=== PATIENT | male | born 1975 ===

== ENCOUNTER → 2024-12-15 | Outpatient (CLI) | payer MEDICAID, SELFPAY | END | disposition home or self-care (01) | PROVIDERS: PCP Family Medicine; Referring Provider Family Medicine; Visit Provider Student in an Organized Health Care Education/Training Program | DX: T81.89XA Other complications of procedures, not elsewhere classified, initial encounter (principal); S31.109A Unspecified open wound of abdominal wall, unspecified quadrant without penetration into peritoneal cavity, initial encounter; X58.XXXA Exposure to other specified factors, initial encounter; R00.1 Bradycardia, unspecified; E11.69 Type 2 diabetes mellitus with other specified complication; R60.0 Localized edema; Z79.4 Long term (current) use of insulin; Z79.84 Long term (current) use of oral hypoglycemic drugs; I49.9 Cardiac arrhythmia, unspecified; Z87.891 Personal history of nicotine dependence | CPT/HCPCS: 11042; 99213; A9270; G0463 ==

== ENCOUNTER → 2024-12-29 | Outpatient (CLI) | payer MEDICAID, SELFPAY | END | disposition home or self-care (01) | LOC: SWHD 15:05 | PROVIDERS: PCP Family Medicine; Referring Provider Family Medicine; Visit Provider Student in an Organized Health Care Education/Training Program | DX: T81.89XA Other complications of procedures, not elsewhere classified, initial encounter (principal); S31.109A Unspecified open wound of abdominal wall, unspecified quadrant without penetration into peritoneal cavity, initial encounter; X58.XXXA Exposure to other specified factors, initial encounter; R00.1 Bradycardia, unspecified; E11.69 Type 2 diabetes mellitus with other specified complication | CPT/HCPCS: 99213; A9270; G0463 ==

== ENCOUNTER → 2025-01-05 | Outpatient (CLI) | payer MEDICAID, SELFPAY | END | disposition home or self-care (01) | LOC: SWHD 15:04 | PROVIDERS: PCP Family Medicine; Referring Provider Family Medicine; Visit Provider Student in an Organized Health Care Education/Training Program | DX: T81.89XA Other complications of procedures, not elsewhere classified, initial encounter (principal); S31.109A Unspecified open wound of abdominal wall, unspecified quadrant without penetration into peritoneal cavity, initial encounter; X58.XXXA Exposure to other specified factors, initial encounter; R00.1 Bradycardia, unspecified; E11.69 Type 2 diabetes mellitus with other specified complication | CPT/HCPCS: 10060; A9270 ==

== ENCOUNTER → 2025-01-07 | Outpatient (CLI) | payer MEDICAID, SELFPAY | END | disposition home or self-care (01) | PROVIDERS: PCP Family Medicine; Referring Provider Family Medicine; Visit Provider Student in an Organized Health Care Education/Training Program | DX: T81.89XA Other complications of procedures, not elsewhere classified, initial encounter (principal); S31.109A Unspecified open wound of abdominal wall, unspecified quadrant without penetration into peritoneal cavity, initial encounter; X58.XXXA Exposure to other specified factors, initial encounter; R00.1 Bradycardia, unspecified; E11.69 Type 2 diabetes mellitus with other specified complication | CPT/HCPCS: 99213; A9270; G0463 ==

== ENCOUNTER 2025-01-14 20:58 | Emergency (ER) | payer MEDICAID, SELFPAY ==
[2025-01-14 21:00] VITALS: BMI 22.6
[2025-01-14 21:17] VITALS: BP 107/66; PULSE 54; RESP 17; TEMP 36.4; O2SAT 98
--- NOTE | 2025-01-14 21:23 | XR_ITS ---
Examination: CT abdomen with intravenous contrast CT pelvis with intravenous contrast 2-D coronal reconstructions 2-D sagittal reconstructions Date and time of exam:January 14, 2025 11:10 PM Indications:: Abdominal pain today CTDI: vol (mGy) 11.45 DLP: (mGycm) 517 Technique: Multiple axial sections of the abdomen and pelvis have been obtained. 64 slice high-resolution scanner used. 3 mm axial sections have been obtained, post intravenous injection 30 cc Isovue-300 2-D sagittal, coronal reconstructions obtained. Low dose protocols were performed. One or more of the following dose reduction techniques were used; automated exposure control, adjustment of the mA and/or KV according to patient size, use of iterative reconstruction technique. Findings: Significant left base pneumonia 5 mm pulmonary nodule right lower lobe No focal liver or splenic lesions Distended gallbladder with gallbladder wall thickening No pancreatic mass No renal or ureteral calculi Aorta normal size Right ileostomy A fluid distended small bowel loop in the right lower abdomen axial image 144 Urinary bladder intact Transverse prostate dimension 4.4 cm Fat-containing inguinal hernias Advanced disc narrowing L5-S1 Impression: Recommend hepatobiliary sonography to confirm acute cholecystitis Significant left base pneumonia Fluid distended small bowel loop in the right lower abdomen, suggest 3 way abdominal series follow-up if early small bowel obstruction is a clinical consideration
--- NOTE | 2025-01-14 21:24 | EDRME_ITS ---
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 Patient states no more stool is coming out of colostomy bag. Chief Complaint: Abdominal Pain Vital signs: Vital Signs Temperature 97.5 F 01/14/25 21:17 Pulse Rate 54 L 01/14/25 21:17 Respiratory Rate 17 01/14/25 21:17 Blood Pressure 107/66 01/14/25 21:17 Pulse Oximetry (%) 98 01/14/25 21:17 Oxygen Delivery Method Room Air 01/14/25 21:17
--- NOTE | 2025-01-14 21:38 | PD.EDABDPN ---
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 Patient states no more stool is coming out of colostomy bag. --------- Dr. 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 No radiation or migration. Patient reports associated N/V. Denies any other associated symptoms. Related Data Previous Rx's ?Medication ?Instructions ?Recorded hydrocodone 5 mg-acetaminophen 325 1 tab PO BID PRN pain #14 tabs 01/07/25 mg tablet Allergies Allergy/AdvReac Type Severity Reaction Status Date / Time ibuprofen Allergy Verified 01/14/25 21:05 Review of Systems Review of Systems Systems Reviewed: All systems reviewed, normal except as documented Past Medical History Past Medical History CARDIAC: Negative Cardiac Disorders or Congestive Heart Failure RESPIRATORY: Negative Chronic Obstructive Pulmonary Disease (COPD) or Asthma GENITOURINARY: Negative Renal Disease ENDOCRINE: Negative Diabetes Mellitus Type 1 or Diabetes Mellitus Type 2 HEMATOLOGIC: Negative Sickle Cell Disease Social History SMOKING STATUS: Never smoker ED Exam Narrative Physical exam: Generally patient is alert chronically ill-appearing in mild distress secondary to pain heart regular rate and rhythm, lungs clear to auscultation equal bilaterally, abdomen shows a right sided ileostomy with a chronic open wound to the left lower quadrant of the abdomen. Abdomen is slightly distended and tympanic and tender., Extremities show no edema., Neurologic exam shows Laurita Coma Scale of 15 Course Quality Measures none Orders Category Date Time Status CT Screening NOW Care 01/14/25 21:23 Active Insert IV NOW Care 01/14/25 21:[address] abdomen pelvis w con Stat Exams 01/14/25 21:23 Completed US gall bladder Stat Exams 01/15/25 00:21 Taken Amylase Stat Lab 01/14/25 21:45 Completed CBC Stat Lab 01/14/25 21:45 Completed CMP [Comprehensive Metabolic Panel] Stat Lab 01/14/25 21:45 Completed Drug Screen,Urine Stat Lab 01/15/25 00:09 Completed Lactate (Lactic Acid) Stat Lab 01/14/25 21:45 Completed Procalcitonin Stat Lab 01/14/25 21:45 Completed Urinalysis, C/S if Indicated Stat Lab 01/15/25 00:09 Completed Azithromycin Inj [Zithromax Inj] 500 mg Med 01/15/25 00:21 Discontinued Sodium Chloride 0.9% 250 ml [Ns] 250 ml IV X1 Morphine* Inj Med 01/14/25 21:48 Discontinued 4 mg IVP X1 ONE Ondansetron Inj [Zofran Inj] Med 01/14/25 21:23 Discontinued 4 mg IV X1 ONE Sodium Chloride 0.9% 1000 ml [Ns] 1,000 ml Med 01/14/25 22:47 Discontinued IV 999 mls/hr cefTRIAXone/D5w 1gm IV premix [Rocephin/D5w 1gm IV Med 01/15/25 00:21 Discontinued premix] 1 gm in 50 ml IV X1 Vital Signs Vital signs: Vital Signs Temperature 97.5 F 01/14/25 21:17 Pulse Rate 54 L 01/14/25 21:17 Respiratory Rate 17 01/14/25 21:17 Blood Pressure 107/66 01/14/25 21:17 Pulse Oximetry (%) 98 01/14/25 21:17 Oxygen Delivery Method Room Air 01/14/25 21:17 Abdominal Pain MDM MDM Narrative MDM Narrative:: Scribe Attestation: 01/14/25 - Radha Valladares am scribing for and in the presence of Dr. Connelly. I interpreted all labs. LFTs are normal. There is no leukocytosis. CT scan done of the abdomen and pelvis with IV contrast showed no obstruction. Showed the possibility of a dilated gallbladder. Ultrasound of the gallbladder showed a normal common bile duct with poor visualization of the gallbladder. LFTs are normal. No fever or leukocytosis. Patient has not had a cough or fever. Patient received morphine 4 mg IV with benefit. Patient be discharged in stable condition. Follow-up with his doctor. Return to ER as needed or if condition worsens. 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 How is presenting disease/condition affected by chronic disease/condition?: uneffected by Evaluation data The following diagnostics were reviewed and interpreted by me:: lab results and radiology exam(s) Lab and/or radiology exams considered but not ordered:: none Interpretation Summary: [place] [facility] Report Signed Patient: CARMITA HUSTON Record#: [id number] Birthdate: 1975 Age/Sex: 49 / M Location: [facility] Attending Dr: Ordering Physician: Hari Singletary PA-C Date of Service: 01/14/25 Procedure(s): CT abdomen pelvis w con Accession Number(s): [id number] cc: Elias Shafer MD; NO PRIMARY/FAMILY,PHYSICIAN; Hari Singletary PA-C~ Examination: CT abdomen with intravenous contrast CT pelvis with intravenous contrast 2-D coronal reconstructions 2-D sagittal reconstructions Date and time of exam:January 14, 2025 11:10 PM Indications:: Abdominal pain today CTDI: vol (mGy) 11.45 DLP: (mGycm) 517 Technique: Multiple axial sections of the abdomen and pelvis have been obtained. 64 slice high-resolution scanner used. 3 mm axial sections have been obtained, post intravenous injection 30 cc Isovue-300 2-D sagittal, coronal reconstructions obtained. Low dose protocols were performed. One or more of the following dose reduction techniques were used; automated exposure control, adjustment of the mA and/or KV according to patient size, use of iterative reconstruction technique. Findings: Significant left base pneumonia 5 mm pulmonary nodule right lower lobe No focal liver or splenic lesions Distended gallbladder with gallbladder wall thickening No pancreatic mass No renal or ureteral calculi Aorta normal size Right ileostomy A fluid distended small bowel loop in the right lower abdomen axial image 144 Urinary bladder intact Transverse prostate dimension 4.4 cm Fat-containing inguinal hernias Advanced disc narrowing L5-S1 Impression: Recommend hepatobiliary sonography to confirm acute cholecystitis Significant left base pneumonia Fluid distended small bowel loop in the right lower abdomen, suggest 3 way abdominal series follow-up if early small bowel obstruction is a clinical consideration Dictated By: Elias Shafer MD Signed By: <Electronically signed by Elias Shafer MD in OV> 01/14/25 6840 [address] Preliminary Report Draft Patient: CARMITA HUSTON Record#: [id number] Birthdate: 1975 Age/Sex: 49 / M Location: [facility] Attending Dr: Ordering Physician: Date of Service: Procedure(s): Accession Number(s): cc: ~ Gallbladder ultrasound. January 15, 2025 at 0205 hours Clinical history: Right upper quadrant abdominal pain x 1 day. Findings: The visualized liver is normal in echogenicity. There is no intrahepatic biliary duct dilatation. The main portal vein is patent and demonstrates hepatopetal flow. The gallbladder is not visualized. The common duct is normal in caliber at 3.3 mm. The pancreas is unable to visualize due to bowel gas. The inferior vena cava is patent. Impression: Nonvisualized gallbladder. Other findings as described above. Report Electronically Signed By: Palmer Deluca 01/15/2025 2:58:45 AM [EST] Medications / Prescriptions Medications or Prescriptions considered but not ordered:: none Medication administrations:: Medication Administration History Discontinued Medications Sodium Chloride (Ns) 1,000 mls @ 999 mls/hr IV .Q1H1M ONE Stop: 01/14/25 23:47 Last Infusion: 01/15/25 01:05 Dose: Infused Documented By: Admin: 01/14/25 23:26 Dose: 999 mls/hr Documented By: BRONSON Azithromycin 500 mg/ Sodium (Chloride) 250 mls @ 250 mls/hr IV X1 ONE Stop: 01/15/25 01:20 Last Admin: 01/15/25 00:31 Dose: 250 mls/hr Documented By: BRONSON Ceftriaxone Sodium/Dextrose (Rocephin/D5w 1gm Iv Premix) 1 gm in 50 mls @ 100 mls/hr IV X1 ONE Stop: 01/15/25 00:50 Last Infusion: 01/15/25 01:05 Dose: Infused Documented By: Admin: 01/15/25 00:29 Dose: 100 mls/hr Documented By: BRONSON Morphine Sulfate (Morphine Sulf Inj 4 Mg/Ml Vial) 4 mg IVP X1 ONE Stop: 01/14/25 21:49 Last Admin: 01/14/25 22:07 Dose: 4 mg Documented By: BRONSON Ondansetron HCl (Ondansetron Inj 2 Mg/Ml Inj 2 Ml) 4 mg IV X1 ONE; Protocol Stop: 01/14/25 21:24 Last Admin: 01/14/25 22:07 Dose: 4 mg Documented By: BRONSON see above Consultations Consultation(s) initiated? (list below): No Diagnosis Differential diagnosis abdominal pain: other (See MDM) Most likely diagnosis given after review of the tests above:: see clinical impression below Admission Indicated Admission indicated?: not indicated Admission Request Was there a request for admission?: No Disposition Plan Disposition Plan: Discharge Discharge Attestation Discharge Attestation: The patient and all family members were given an opportunity to ask questions and understood the discharge instructions. Discharge instructions specifically effects, indications for sooner follow up or return to the emergency department, and the expected course of current diagnosis. Patient condition: Stable Discharge Plan Plan Patient Disposition: HOME (Self Care) Prescriptions/Referrals Prescriptions/Med Rec: No Action hydrocodone-acetaminophen 5-325 mg tablet 1 tab PO BID MDD 10mg PRN (Reason: pain) Qty: 14 0RF Referrals: No Primary/Family,Physician [Primary Care Provider] - In 1 week Problem List Clinical Impression: Abdominal pain Patient/Caregiver Discharge Instructions Education Materials: Abdominal Pain Additional Instructions: Continue all current medications. Follow-up with your doctor as needed for further treatment and evaluation. Print Language: Japanese Stand Alone Forms: [employer] Award Info., Patient Portal Info Letter
[2025-01-14 22:00] LABS: Lactate (Lactic Acid) 1.0 mMol/L (0.4-2.0)
[2025-01-14 22:03] LABS: Basophils # (Auto) 0.0 Thou/mm3 (0.0-0.2); Basophils % (Auto) 0 % (0-2.5); Eosinophils # (Auto) 0.1 Thou/mm3 (0.0-0.5); Eosinophils % (Auto) 1 % (0-10); Hematocrit 35.6 % (41.0-53.0); Hemoglobin 11.4 g/dL (13.5-16.0); Immature Granulocytes Auto 0.06 Thou/mm3 (0.00-0.00); Lymphocytes # (Auto) 1.1 Thou/mm3 (1.0-4.8); Lymphocytes % (Auto) 10 % (10-50); Mean Corpuscular HGB Conc 32.0 g/dl (31.0-37.0); Mean Corpuscular Hemoglobin 28.5 pg (25.0-35.0); Mean Corpuscular Volume 89 fL (80-100); Monocytes # (Auto) 0.5 Thou/mm3 (0.0-0.8); Monocytes % (Auto) 4 % (0-12); Neutrophils # (Auto) 9.3 Thou/mm3 (1.8-7.7); Neutrophils % (Auto) 85 % (37-80); Nucleated Red Blood Cell # 0.00 Thou/mm3 (0.00-0.00); Nucleated Red Blood Cell % 0 /100 WBC (0); Platelet Count 241 Thou/mm3 (140-440); RDW Standard Deviation 54.4 fL (35.1-43.9); Red Blood Count 4.00 Miln/mm3 (4.50-5.90); White Blood Count 11.0 Thou/mm3 (3.8-10.6)
[2025-01-14] MEDS: MORPHINE SULF INJ 4 MG/ML VIAL IVP (22:07)
[2025-01-14] MEDS: ONDANSETRON INJ 2 MG/ML INJ 2 ML 4 MG IV (22:07)
[2025-01-14 22:36] LABS: Alanine Aminotransferase 42 U/L (10-49); Albumin, Serum 4.0 gm/dL (3.5-5.0); Albumin/Globulin Ratio 1.3 (1.2-2.2); Alkaline Phosphatase 184 U/L (46-116); Amylase 116 U/L (30-118); Anion Gap 12 (7-16); Aspartate Amino Transferase 35 U/L (0-34); BUN/Creatinine Ratio 13 Ratio (12-20); Bilirubin,Total 0.6 mg/dL (0.3-1.2); Blood Urea Nitrogen 19 mg/dL (9-23); Calcium 9.8 mg/dL (8.3-10.6); Calcium (Corrected) 9.8 mg/dL (8.5-10.1); Carbon Dioxide 17.1 mMol/L (20.0-31.0); Chloride 109 mMol/L (98-107); Creatinine (Component) 1.5 mg/dL (0.6-1.3); Estimated Creatinine Clearance 52.3 mL/min (>60); Globulin 3.1 gm/dL (2.3-3.5); Glucose 156 mg/dL (74-106); Osmolality,Calculated 280 (275-295); Potassium 3.6 mMol/L (3.4-5.1); Procalcitonin 0.09 ng/ml (0.0-0.49); Sodium 138 mMol/L (136-145); Total Protein 7.1 gm/dL (5.7-8.2); eGFR 56 See Note
[2025-01-14] MEDS: SODIUM CHLORIDE 0.9% 1000 ML 1,000 ML 999 ML IV (23:26)
[2025-01-14 23:28] VITALS: BP 113/62; PULSE 50; RESP 16; TEMP 36.7; O2SAT 100
[2025-01-15 00:17] LABS: Collection Type, Urine Clean Catch
--- NOTE | 2025-01-15 00:21 | XR_ITS ---
Examination: Abdomen sonogram, Limited Date and time of exam: January 15, 2025 at 0205 hrs. Indications: Right upper abdominal pain beginning today Technique: Real-time schroeder scale transabdominal sonographic images of the upper abdomen obtained. Findings: Gallbladder not visualized Normal common bile duct 0.33 cm Pancreas obscured by bowel gas Liver 14.9 cm no liver lesions Normal hepatopedal portal venous flow Patent IVC Impression: Limited study Normal common bile duct
[2025-01-15 00:29] LABS: Bacteria,Urine Rare; Bilirubin,Urine Negative (Negative); Blood,Urine Negative (Negative); Clarity,Urine Clear (Clear/Hazy); Color,Urine Lt-Yellow (Lt Yel-Yel); Culture Indicated,Urine Not Indicated; Glucose, Urine Negative (Negative); Granular Casts,Urine < 1 /hpf (0-1); Ketones,Urine Negative (Negative); Leukocyte Esterase,Urine Negative (Negative); Nitrite,Urine Negative (Negative); PH,Urine 6.0 (5.0-7.0); Protein,Urine 1+ (Neg - Trace); RBC,Urine 3 /hpf (0-3); Red Blood Cell Casts,Urine < 1 /hpf (0-1); Specific Gravity,Urine 1.023 (1.001-1.035); Squamous Epithelial Cell,Urine 1 /hpf (0-5); Urobilinogen,Urine Negative mg/dL (0.0-1.0); WBC,Urine 1 /hpf (0-5)
[2025-01-15] MEDS: cefTRIAXone/D5w 1gm IV premix 1 GM/50 ML BAG IV (00:29)
[2025-01-15] MEDS: AZITHROMYCIN INJ 500 MG in SODIUM CHLORIDE 0.9% 250 ML 250 ML 250 MG IV (00:31)
[2025-01-15 00:32] LABS: Amphetamine/Methamp Scrn,U Negative (Negative); Barbiturate Screen,Urine Negative (Negative); Benzodiazepines Screen,Urine Negative (Negative); Benzoylecgonine Screen, Ur Negative (Negative); Fentanyl Screen,Urine Negative (Negative); Opiate Screen,Urine Positive (Negative); THC Screen,Urine Negative (Negative)
--- NOTE | 2025-01-15 02:59 | PRELIM_ITS ---
Gallbladder ultrasound. January 15, 2025 at 0205 hours Clinical history: Right upper quadrant abdominal pain x 1 day. Findings: The visualized liver is normal in echogenicity. There is no intrahepatic biliary duct dilatation. The main portal vein is patent and demonstrates hepatopetal flow. The gallbladder is not visualized. The common duct is normal in caliber at 3.3 mm. The pancreas is unable to visualize due to bowel gas. The inferior vena cava is patent. Impression: Nonvisualized gallbladder. Other findings as described above. Report Electronically Signed By: Palmer Deluca 01/15/2025 2:58:45 AM [EST]
[2025-01-15 03:30] VITALS: BP 102/70; PULSE 55; RESP 18; TEMP 36.8; O2SAT 98
== END 2025-01-15 03:31 | disposition home or self-care (01) ==
PROVIDERS: Physician Assistant; Emergency Provider Emergency Medicine
DX: J18.9 Pneumonia, unspecified organism (principal); R10.11 Right upper quadrant pain; R14.0 Abdominal distension (gaseous)
CPT/HCPCS: 36415; 74177; 76705; 80053; 80307; 81001; 82150; 83605; 84145; 85025; 96361; 96365; 96375; 99284; A4649; J0456; J0696; J2270; J2405; J7030; J7050; Q9967